=== PATIENT | male | born 1965 | race African-American/Black ===

== ENCOUNTER 2017-12-01 07:20 | Day surgery (SDC) | payer OTHER ==
[2017-12-01] MEDS ORDERED: PROPOFOL 20 ML ×2 (08:40→10:08)
[2017-12-01] MEDS ORDERED: OCULAR LUBRICANT 3.5 GM OPH OINT RIGHT EYE (10:30)
[2017-12-01] MEDS ORDERED: TETRACAINE 0.5% 4 ML OPH RIGHT EYE (11:00)
== END 2017-12-01 10:55 | disposition home or self-care (01) ==
LOC: GIL 07:20
DX: K92.1 Melena (principal); D12.5 Benign neoplasm of sigmoid colon; K64.8 Other hemorrhoids; I10 Essential (primary) hypertension
CPT/HCPCS: 45380; 88305